=== PATIENT | male | born 1990 | race Hispanic/Latino ===

== ENCOUNTER 2021-07-18 13:17 | Emergency (ER) | payer OTHER ==
[~2021-07-18] VITALS: Ht 175.3 cm; Wt 76.7 kg
[2021-07-18 13:18] VITALS: BP 137/89
[2021-07-18 16:14] LABS: HEMATOCRIT 43.6 % (42.0-52.0); HEMOGLOBIN 14.7 g/dl (13.5-17.5); MEAN CORPUSCULAR HEMOGLOBIN 30.1 pg (27.0-33.0); MEAN CORPUSCULAR HGB CONC 33.7 g/dl (32.0-36.5); MEAN CORPUSCULAR VOLUME 89.2 fl (80.0-96.0); PLATELET COUNT, AUTOMATED 253 10^3/uL (150-450); RED BLOOD COUNT 4.89 10^6/uL (4.30-6.10); WHITE BLOOD COUNT 7.8 10^3/uL (4.0-10.0)
[2021-07-18 16:52] LABS: ALBUMIN 4.1 GM/DL (3.2-5.2); ALT/SGPT 33 U/L (12-78); BILIRUBIN,TOTAL 0.6 MG/DL (0.2-1.0); BLOOD UREA NITROGEN 15 MG/DL (7-18); CALCIUM LEVEL 9.5 MG/DL (8.5-10.1); CARBON DIOXIDE LEVEL 29 MEQ/L (21-32); CHLORIDE LEVEL 106 MEQ/L (98-107); CREATININE FOR GFR 1.07 MG/DL (0.70-1.30); GLOMERULAR FILTRATION RATE > 60.0 (>60); GLUCOSE, FASTING 90 MG/DL (70-100); POTASSIUM SERUM 4.2 MEQ/L (3.5-5.1); SODIUM LEVEL 140 MEQ/L (136-145); TOTAL PROTEIN 7.8 GM/DL (6.4-8.2)
[2021-07-18] MEDS ORDERED: ANUSOL HC CREAM 30GM TOP STA (19:34)
[2021-07-18] MEDS ORDERED: IBUPROFEN 600MG TAB PO ONE (19:35)
[2021-07-18] MEDS ORDERED: IBUP-1022 PO (19:36)
[2021-07-18] MEDS ORDERED: COLA1TAB PO (19:36)
[2021-07-18] MEDS ORDERED: HYDR-3713 PO (19:36)
[2021-07-18] MEDS ORDERED: ANUS2.5C2 TOP (19:36)
[2021-07-19] MEDS ORDERED: COLA1TAB PO (12:13)
[2021-07-19] MEDS ORDERED: HYDR-3713 PO (12:13)
[2021-07-19] MEDS ORDERED: IBUP-1022 PO (12:13)
[2021-07-19] MEDS ORDERED: ANUS2.5C2 TOP (12:13)
== END 2021-07-18 20:30 | disposition home or self-care (01) ==
LOC: M ED 13:17
DX: K64.8 Other hemorrhoids (principal)